=== PATIENT | male | born 1965 | race Caucasian/White ===

== ENCOUNTER → 2016-09-23 | Day surgery (SDC) | payer OTHER ==
[~2016-09-23] VITALS: Ht 177.8 cm; Wt 90.1 kg
--- NOTE | 2016-09-23 10:56 | Operative Report ---
Operative/Inv Procedure Report Surgery Date: 09/23/16 Name of Procedure: Carpal tunnel release right Pre-Operative Diagnosis: Carpal tunnel syndrome right advanced Post-Operative Diagnosis: Same Estimated Blood Loss: scant Surgeon/Oven Operator: BRANDY GORE MD Anesthesia: local monitored anesthesi Operative/Procedure Note Note: Patient was counseled regards to the procedure the alternatives the risks and expected outcomes as relates to attempt at surgical improvement for long- standing neglected right carpal tunnel syndrome. No guarantees were given in regards to results. We talked about infection bleeding pain numbness RSD sensitivity of the scar open wound loss of function. Although these are not likely they are wrist that need to be accepted. The patient apparently accepts and understands and signed informed consent. His advanced findings and the outcome of surgery less optimistic. Patient brought to the operating room placed supine on the table. The arm was prepped and draped in usual sterile fashion proximal tourniquet was placed on the forearm. Incision was placed in the usual location deepened through the skin subcutaneous tissue and palmar fascia. The transverse carpal ligament was identified under direct vision and opened carefully. No other pathology was seen. The nerve was pristine the completion of the procedure. The wound was irrigated suture closed at the skin and splinted at the wrist. Ends dictation
== END ==
LOC: STS 02:07
DX: G56.01 Carpal tunnel syndrome, right upper limb (principal); F17.200 Nicotine dependence, unspecified, uncomplicated
CPT/HCPCS: J0690; J2250

== ENCOUNTER 2017-03-07 11:46 | Emergency (ER) | payer OTHER ==
[~2017-03-07] VITALS: Ht 177.8 cm; Wt 90.7 kg
[2017-03-07 11:48] VITALS: BP 140/94
--- NOTE | 2017-03-07 13:01 | ED UPPER/LOWER EXTREMITY COMPL ---
History of Present Illness General Chief Complaint: Laceration Procedure Stated Complaint: WORK INJURY LAC TO L HAND PINKY FINGER Source: patient Exam Limitations: no limitations Vital Signs & Intake/Output Vital Signs & Intake/Output Vital Signs Date Time Temp Pulse Resp B/P B/P Pulse O2 O2 Flow FiO2 Mean Ox Delivery Rate 03/07 1148 96.0 91 20 140/94 98 Room Air Allergies Coded Allergies: NO KNOWN ALLERGIES (UNKNOWN 03/07/17) Triage Note: PT TO ED C/O LAC TO LEFT PINKY FROM KNIFE. HAPPENED P[employer]ING [employer] WORK[employer]. WORKERS COMP FORM FILED. LAST TETANUS ABOUT 5 YEARS AGO. Triage Nurses Notes Reviewed? yes Onset: Abrupt Duration: hour(s): (2) Timing: remote history Severity: moderate Pain/Injury Location: Left: 5th finger. Method of Injury: laceration No Modifying Factors: none HPI: Patient is a 52-year-old male presenting to the emergency department with chief complaint of laceration to left pinky finger that happened just prior to arrival at work. Pain is currently moderate. Unable to control bleeding with pressure. Up-to-date with tetanus. No numbness or tingling. (BLANCA HAIR) Past History Travel History Traveled to [place] past 21 day No Medical History Any Pertinent Medical History? see below for history History of MRSA: No History of VRE: No History of CDIFF: No Surgical History Surgical History: non-contributory Psychosocial History Who do you live with Spouse Services at Home None What is your primary language Albanian Tobacco Use: Current Daily Use Daily Tobacco Use Amount/Type: => 5 Cigarettes daily ETOH Use: denies use Illicit Drug Use: denies illicit drug use Family History Hx Contributory? No (BLANCA HAIR) Review of Systems Review of Systems Constitutional: Reports: no symptoms. Comments Review of systems: See HPI, All other systems negative. Constitutional, no chills fever or weight loss HEENT: No visual changes no sore throat no congestion Cardiovascular: No chest pain Skin, no jaundice no rashes Respiratory: No dyspnea cough sputum GI: No nausea no vomiting Muscle skeletal: no back pain, no neck pain, Neurologic: No numbness Psych: No stress anxiety Immunology: No splenectomy or history of AIDS (BLANCA HAIR) Physical Exam Physical Exam General Appearance: well developed/nourished, no apparent distress, alert, awake , comfortable Comments: Well-developed well-nourished no apparent distress. HEENT: Atraumatic, extraocular motion intact Neck: Supple, no lymphadenopathy Back: Nontender Respiratory: No respiratory distress Extremities: No edema, full range of motion, radial pulses are 2+ bilaterally. Capillary refill is intact in upper extremity bilaterally. No nail involvement with the laceration. Skin: 2 cm, well approximated subcutaneous laceration at the distal tip of the left fifth finger. No foreign bodies appreciated. No active bleeding at this time. Neuro: Alert and oriented x3, motor and sensory intact in upper extremities bilaterally. Psych: Mood affect normal, normal memory normal judgment. (BLANCA HAIR) Progress Differential Diagnosis: LACERATION, ABRASION,SKIN AVULSION Plan of Care: Wound was clean, declined pain medication. Up-to-date with tetanus immunization. Wound will be sutured. Patient will return in 7-10 days. (BLANCA HAIR) Departure Departure Time of Disposition: 1325 Disposition: HOME OR SELF CARE Condition: Stable Clinical Impression Primary Impression: Finger laceration Qualifiers: Encounter type: initial encounter Finger: little finger Damage to nail status: unspecified Foreign body presence: without foreign body Laterality: left Qualified Code: S61.217A - Laceration without foreign body of left little finger without damage to nail, initial encounter Referrals: RENO ELMA,RODOLFO Day (PCP/Family) Additional Instructions: Return in 7-10 days for suture removal. Keep clean and dry. Wash with soap and water. Return for worsening symptoms or concerns. Departure Forms: Customer Survey [employer] Employee [facility] General Discharge Information (BLANCA HAIR) PA/COLUMNIST/COMMENTATOR Co-Sign Statement Statement: ED Attending supervision documentation- [] I saw and evaluated the patient. I have also reviewed all the pertinent lab results and diagnostic results. I agree with the findings and the plan of care as documented in the PA's/COLUMNIST/COMMENTATOR's documentation. [x] I have reviewed the ED Record and agree with the PA's/COLUMNIST/COMMENTATOR's documentation. [] Additions or exceptions (if any) to the PAs/COLUMNIST/COMMENTATOR's note and plan are summarized below: [] (ALYSSA ALONSO DO) Procedures Laceration/Wound Repair Laceration/Wound Repair: Wound Location: upper extremity Wound's Depth, Shape: linear, subcutaneous Wound Length (cm): 2 Wound Explored: clean, no foreign body removed, irrigated extensively Irrigated w/ Saline (ccs): 200 Betadine Prep? Yes Anesthesia: 1% lidocaine Volume Anesthetic (ccs): 4 Wound Debrided: minimal Wound Repaired With: sutures Suture Size/Type: 5:0, nylon Number of Sutures: 5 Layer Closure? No Tetanus Status: up to date Progress: Patient tolerated procedure well. (MICHAEL JADE,BLANCA)
== END 2017-03-07 14:04 ==
LOC: ERH 11:46
DX: S61.217A Laceration without foreign body of left little finger without damage to nail, initial encounter (principal); W45.8XXA Other foreign body or object entering through skin, initial encounter; Y93.9 Activity, unspecified; Y92.9 Unspecified place or not applicable